=== PATIENT | female | born 1970 | race African-American/Black ===

== ENCOUNTER 2017-04-02 16:03 | Emergency (ER) | payer MEDICAID, OTHER ==
[~2017-04-02] VITALS: Ht 170.2 cm; Wt 100.0 kg
[2017-04-02 17:18] VITALS: BP 137/87
== END 2017-04-02 22:51 | disposition left against medical advice (07) ==
LOC: ER 16:03
DX: Z53.21 Procedure and treatment not carried out due to patient leaving prior to being seen by health care provider (principal)